=== PATIENT | male | born 1940 | race Hispanic/Latino ===

== ENCOUNTER 2022-01-09 19:28 | Emergency (ER) | payer MEDICARE ==
[~2022-01-09] VITALS: Ht 167.6 cm; Wt 88.5 kg
[2022-01-09] MEDS ORDERED: ACETAMINOPHEN 500 MG TABLET PO ONE (21:00)
[2022-01-09] MEDS ORDERED: ACETAMINOPHEN 500 MG TABLET ONE (21:00)
[2022-01-09] MEDS ORDERED: MORPHINE 4 MG SYG IVP ONE (21:30)
[2022-01-09] MEDS ORDERED: ONDANSETRON 4MG INJ IV ONE (21:30)
[2022-01-09] MEDS ORDERED: MORPHINE 4 MG SYG ONE (21:33)
[2022-01-09] MEDS ORDERED: ONDANSETRON 4MG INJ ONE (21:33)
[2022-01-09] MEDS ORDERED: TRAM50TA4 PO (21:33)
[2022-01-09 21:36] VITALS: BP 159/62
[2022-01-09] MEDS ORDERED: MORPHINE 2 MG SYG IVP ONE (22:00)
== END 2022-01-09 21:43 | disposition home or self-care (01) ==
LOC: EDH 19:28
DX: R51.9 Headache, unspecified (principal); R53.1 Weakness; I25.10 Atherosclerotic heart disease of native coronary artery without angina pectoris; E11.9 Type 2 diabetes mellitus without complications; E78.00 Pure hypercholesterolemia, unspecified; I10 Essential (primary) hypertension; Z98.890 Other specified postprocedural states
CPT/HCPCS: 99284; 96374; 70450; 96375; 93005; J2405; J2270